=== PATIENT | male | born 1990 | race Caucasian/White ===

== ENCOUNTER 2022-02-25 22:51 | Emergency (ER) | payer OTHER ==
[2022-02-26 01:33] LABS: HEMOGLOBIN 13.6 gm/dl (14.0-17.5); RED BLOOD COUNT 4.57 M/UL (4.20-5.50)
[2022-02-26 01:55] LABS: BUN/CREATININE RATIO 24 (0-10)
[2022-02-26] MEDS ORDERED: CEPHALEXIN500 MG PO (02:57)
[2022-02-27 09:11] LABS: HBSAG SCREEN Negative (Negative); HEP A AB, IGM Negative (Negative); HEP B CORE AB, IGM Negative (Negative); HEP C VIRUS AB 0.2 (0.0-0.9)
== END 2022-02-26 03:28 | disposition home or self-care (01) ==
LOC: ER1 22:51
PROVIDERS: Student in an Organized Health Care Education/Training Program
DX: M79.5 Residual foreign body in soft tissue (principal); L03.116 Cellulitis of left lower limb; F17.200 Nicotine dependence, unspecified, uncomplicated
CPT/HCPCS: 73060; 73080; 73090; 80053; 80074; 85025; 85379; 99283

== ENCOUNTER 2022-03-06 21:35 | Emergency (ER) | payer OTHER ==
[~2022-03-06 21:35] MED LIST: CEPHALEXIN500 MG PO
[2022-03-07 03:12] LABS: HEMOGLOBIN 14.2 gm/dl (14.0-17.5); RED BLOOD COUNT 4.72 M/UL (4.20-5.50); WHITE BLOOD COUNT 6.3 K/UL (4.5-11.0)
[2022-03-07 04:12] LABS: BUN/CREATININE RATIO 20 (0-10)
[2022-03-07] MEDS ORDERED: MEDROL DOSEPAK 24 MG PO (05:11)
[2022-03-07] MEDS ORDERED: Voltaren Gel 1 % TOP (05:11)
== END 2022-03-07 05:16 | disposition home or self-care (01) ==
LOC: ER1 21:35
PROVIDERS: Physician Assistant Medical
DX: M54.50 Low back pain, unspecified (principal); M25.552 Pain in left hip; F17.210 Nicotine dependence, cigarettes, uncomplicated; Z88.0 Allergy status to penicillin
CPT/HCPCS: 72131; 73552; 80053; 85025; 99284; J1885

== ENCOUNTER 2022-03-14 17:35 | Emergency (ER) | payer OTHER ==
[~2022-03-14 17:35] MED LIST changes: +MEDROL DOSEPAK 24 MG PO; +Voltaren Gel 1 % TOP
[2022-03-14 20:37] LABS: BUN/CREATININE RATIO 25 (0-10)
[2022-03-14 20:43] LABS: HEMOGLOBIN 15.2 gm/dl (14.0-17.5); RED BLOOD COUNT 4.98 M/UL (4.20-5.50); WHITE BLOOD COUNT 10.3 K/UL (4.5-11.0)
== END 2022-03-14 23:45 | disposition home or self-care (01) ==
LOC: ER1 17:35
PROVIDERS: Emergency Medicine
DX: R07.89 Other chest pain (principal); R20.2 Paresthesia of skin; F17.200 Nicotine dependence, unspecified, uncomplicated; Z20.822 Contact with and (suspected) exposure to COVID-19; Z88.0 Allergy status to penicillin
CPT/HCPCS: 70450; 71045; 80053; 82550; 82553; 82962; 83690; 83735; 83880; 84100; 84484; 85025; 85610; 85730; 93005; 99285; U0002

== ENCOUNTER 2022-03-19 10:49 | Emergency (ER) | payer OTHER ==
[2022-03-19 12:09] LABS: HEMOGLOBIN 14.4 gm/dl (14.0-17.5); RED BLOOD COUNT 4.79 M/UL (4.20-5.50)
[2022-03-19 12:41] LABS: BUN/CREATININE RATIO 35 (0-10)
== END 2022-03-19 13:35 | disposition home or self-care (01) ==
LOC: ER1 10:49
PROVIDERS: Physician Assistant
DX: I10 Essential (primary) hypertension (principal); F19.10 Other psychoactive substance abuse, uncomplicated; J45.909 Unspecified asthma, uncomplicated; F17.210 Nicotine dependence, cigarettes, uncomplicated; Z88.0 Allergy status to penicillin
CPT/HCPCS: 71045; 80053; 82550; 82553; 84484; 85025; 99284

== ENCOUNTER → 2022-03-24 | Outpatient (CLI) | payer OTHER ==
[~2022-03-24] MED LIST changes: +PROVENTIL HFA6.7 GM INH
== END ==
LOC: EXRD 11:21
DX: M79.605 Pain in left leg (principal)
CPT/HCPCS: 73140; 73552

== ENCOUNTER 2022-03-26 10:39 | Emergency (ER) | payer OTHER ==
[~2022-03-26 10:39] MED LIST changes: -PROVENTIL HFA6.7 GM INH
[2022-03-26 11:28] LABS: HEMOGLOBIN 14.7 gm/dl (14.0-17.5); RED BLOOD COUNT 4.82 M/UL (4.20-5.50); WHITE BLOOD COUNT 6.4 K/UL (4.5-11.0)
[2022-03-26 11:52] LABS: BUN/CREATININE RATIO 25 (0-10)
[2022-03-26] MEDS ORDERED: PROVENTIL HFA6.7 GM INH (17:35)
== END 2022-03-26 17:37 | disposition home or self-care (01) ==
LOC: ER1 10:39
PROVIDERS: Physician Assistant
DX: R07.9 Chest pain, unspecified (principal); I10 Essential (primary) hypertension; R20.2 Paresthesia of skin; R51.9 Headache, unspecified; Z88.0 Allergy status to penicillin; F17.200 Nicotine dependence, unspecified, uncomplicated
CPT/HCPCS: 70450; 70496; 70498; 71045; 80053; 80307; 82550; 82553; 84484; 85025; 93005; 99284; Q9967

== ENCOUNTER 2022-04-04 10:08 | Emergency (ER) | payer OTHER ==
[~2022-04-04 10:08] MED LIST changes: +PROVENTIL HFA6.7 GM INH
[2022-04-04 11:58] LABS: HEMOGLOBIN 13.7 gm/dl (14.0-17.5); RED BLOOD COUNT 4.5 M/UL (4.20-5.50); WHITE BLOOD COUNT 5.9 K/UL (4.5-11.0)
[2022-04-04 12:38] LABS: BUN/CREATININE RATIO 32 (0-10)
== END 2022-04-04 14:37 | disposition home or self-care (01) ==
LOC: ER1 10:08
PROVIDERS: Physician Assistant
DX: R06.02 Shortness of breath (principal); R05.9 Cough, unspecified; R60.0 Localized edema; M79.661 Pain in right lower leg; I10 Essential (primary) hypertension; M79.662 Pain in left lower leg; Z20.822 Contact with and (suspected) exposure to COVID-19; F17.200 Nicotine dependence, unspecified, uncomplicated; Z88.0 Allergy status to penicillin
CPT/HCPCS: 0240U; 71045; 80053; 82550; 82553; 83880; 84484; 85025; 93005; 93971; 99285

== ENCOUNTER → 2022-04-07 | Outpatient (CLI) | payer OTHER | LOC: KOH-I 16:00 | DX: M79.672 Pain in left foot (principal); M79.671 Pain in right foot | CPT/HCPCS: 73630 ==